=== PATIENT | male | born 1980 | race Caucasian/White ===

== ENCOUNTER → 2021-11-16 | Outpatient (CLI) | payer BC | LOC: M WUC 12:00 | PROVIDERS: ATTEND Physician Assistant | DX: J20.9 Acute bronchitis, unspecified (principal); R05.9 Cough, unspecified ==

== ENCOUNTER → 2023-08-01 | Outpatient (REF) | payer BC ==
[2023-08-01 17:23] LABS: CK-MB VALUE MASS < 1.0 NG/ML (<3.6); LIPASE 42 U/L (12-53)
[2023-08-01 17:25] LABS: CPK CREATINE PHOSPHOKINASE 99 U/L (46-171); MB/CK RELATIVE INDEX 1.01 (< OR =4)
== END ==
LOC: M LAB REF 16:05
PROVIDERS: ATTEND Nurse Practitioner Family
DX: R07.9 Chest pain, unspecified (principal); R10.9 Unspecified abdominal pain

== ENCOUNTER → 2023-12-09 | Outpatient (CLI) | payer BC | LOC: M RAD 06:45 | PROVIDERS: ATTEND Nurse Practitioner Family | DX: R10.9 Unspecified abdominal pain (principal); R74.01 Elevation of levels of liver transaminase levels; K76.0 Fatty (change of) liver, not elsewhere classified ==